=== PATIENT | female | born 1935 | race Caucasian/White ===

== ENCOUNTER 2017-06-05 11:26 | Day surgery (SDC) | payer OTHER ==
[2017-06-05] MEDS ORDERED: MARCAINE 0.5% ONE (12:17)
[2017-06-05] MEDS ORDERED: XYLOCAINE-MPF 1% ONE (12:17)
[2017-06-05] MEDS ORDERED: KENALOG INJ 40 MG IM ONE (12:18)
--- NOTE | 2017-06-05 12:24 | DR.UPDATE ---
H&P Update History and Physical Update: History and Physical reviewed and patient examined. Changes noted: NO Yes with the following:agree with H&P from Dr Bonilla. will perform left hip steroid injection with flouroscopic guidance
[2017-06-05 13:34] VITALS: BP 118/55
== END 2017-06-05 13:00 | disposition home or self-care (01) | DRG 554 ==
LOC: SURG1 11:26
PROVIDERS: ATTEND Specialist
PROC: 3E0U3BZ Introduction of Anesthetic Agent into Joints, Percutaneous Approach (ICD-10-PCS; 2017-06-05)
PROC: 3E0U33Z Introduction of Anti-inflammatory into Joints, Percutaneous Approach (ICD-10-PCS; principal; 2017-06-05 12:00)
DX: M16.12 Unilateral primary osteoarthritis, left hip (principal)
CPT/HCPCS: 20610; 76000; 77002; S0020; J3301

== ENCOUNTER 2017-08-14 13:04 | Day surgery (SDC) | payer OTHER ==
--- NOTE | 2017-08-14 13:25 | DR.UPDATE ---
H&P Update History and Physical Update: History and Physical reviewed and patient examined. Changes noted: NO Yes with the following:Agree with H&P from Dr Garcia. will proceed with repeat left hip steroid injection as first one gave one month relief
[2017-08-14] MEDS: XYLOCAINE 1 % (PLAIN) ONE ×2 (13:34→13:42)
[2017-08-14] MEDS: MARCAINE 0.5% ONE ×2 (13:34→13:45)
[2017-08-14] MEDS: KENALOG INJ 40 MG IM ONE ×2 (13:34→13:46)
[2017-08-14 14:09] VITALS: BP 129/67
== END 2017-08-14 14:04 | disposition home or self-care (01) | DRG 554 ==
LOC: SURG1 13:04
PROVIDERS: ATTEND Orthopaedic Surgery
PROC: 3E0U3BZ Introduction of Anesthetic Agent into Joints, Percutaneous Approach (ICD-10-PCS; 2017-08-14)
PROC: 3E0U33Z Introduction of Anti-inflammatory into Joints, Percutaneous Approach (ICD-10-PCS; principal; 2017-08-14 14:15)
DX: M16.12 Unilateral primary osteoarthritis, left hip (principal)
CPT/HCPCS: 20610; 76000; 77002; S0020; J2001; J3301